=== PATIENT | female | born 1935 | race Caucasian/White ===

== ENCOUNTER → 2020-01-13 | Outpatient (CLI) | payer MEDICARE ==
--- NOTE | 2020-01-13 15:57 | KCIC ---
PROCEDURE: KNEE RIGHT 3V STUDY DATE: 01/13/2020 CLINICAL INDICATION / HISTORY: Reason: ACUTE PAIN OF RIGHT KNEE / Spl. Instructions: New onset of acute pain in right knee. No specific injury, exercising. / History: . TECHNIQUE: AP, lateral, and oblique views of the right knee. COMPARISON: None FINDINGS: Anatomic alignment. No fracture. No aggressive osseous lesions. Medial right knee joint compartment hemiarthroplasty is present with no evidence of hardware loosening. Soft tissues unremarkable. IMPRESSION: Medial compartment right knee hemiarthroplasty with no acute osseous abnormality or malalignment shown. Electronically signed by: Nita Swan MD (01/13/2020 3:54 PM) [id number]
== END ==
LOC: KCIC 11:47
PROVIDERS: ATTEND Internal Medicine Rheumatology
DX: M25.561 Pain in right knee (principal); Z96.651 Presence of right artificial knee joint
CPT/HCPCS: 73562